=== PATIENT | male | born 1990 | race African-American/Black ===

== ENCOUNTER 2016-06-25 17:16 | Emergency (ER) | payer SELFPAY ==
--- NOTE | 2016-06-25 17:40 | EDDOCDS ---
Nurse's Notes [facility] Name: Jorge Langford Age: 25 yrs Sex: Male : 1990 Arrival Date: 06/25/2016 Time: 17:16 Bed TR7 Private MD: No Pcp Diagnosis: Conjunctivitis-left, bacterial;Blepharitis Presentation: 06/25 17:21 Presenting complaint: Patient states: woke up a week ago with reddened swollen left [facility] eye, today it was real crusty with puss actually for about three days now. Mechanism of Injury: No Mechanism of Injury. The patient denies any loss of vision. Adult Sepsis Screening: The patient does not have new or worsening altered mentation. Patient's respiratory rate is less than 22. Systolic blood pressure is greater than 100. Patient has a qSOFA score of 0- Negative Sepsis Screen. Suicide/Homicide risk assessment- the patient denies having any suicidal and/or homicidal ideations and does not present with any other emotional, behavioral or mental health complaints. Status: Patient is not a program services planner or dependent. Transition of care: patient was not received from another setting of care. 17:21 Acuity: NEW Level 4 [facility] 17:21 Method Of Arrival: Walkin/Carried/Asstd [facility] Triage Assessment: 17:23 General: Appears in no apparent distress, comfortable, Behavior is appropriate for age, [facility] cooperative. Pain: Location: left eye Pain currently is 4 out of 10 on a pain scale. HIV screening NA for this visit Offered previously. EENT: Eyes redness at left eye noted. Respiratory: Airway is patent Respiratory effort is even, unlabored, Respiratory pattern is regular, symmetrical. Derm: Skin is pink, warm & dry. Historical: - Allergies: no known allergies; - Home Meds: 1. Tylenol-Codeine #4 300-60 mg Oral tab (friend's prescirption) (Last dose: 06/25/2016 13:00) - PMHx: none; - PSHx: none; - Social history: Smoking status: Patient states former smoker of tobacco. Patient uses marijuana, last used earlier today, No barriers to communication noted. - Family history: Not pertinent. - : The pt / caregiver states he / she is not on anticoagulants. Home medication list is obtained from the patient. - Exposure Risk Screening:: None identified. Screenin:36 Screening information is obtained from the patient. Fall risk: No risks identified. [facility] Assistance ADL's: requires no assistance with activities of daily living. Abuse/DV Screen: The patient / caregiver reports he/she is: not in a situation that causes fear, pain or injury. Nutritional screening: No deficits noted. Advance Directives: There is no active DNR order. home support is adequate. Assessment: 17:36 General: Appears in no apparent distress, comfortable, Behavior is appropriate for age, c[facility] cooperative. Pain: Location: left eye. Respiratory: No deficits noted. Airway is patent Respiratory effort is even, unlabored, Respiratory pattern is regular, symmetrical. Derm: Skin is pink, warm & dry. Vital Signs: 17:18 BP 152 / 69; Pulse 85; Resp 18; Temp 97.5(O); Pulse Ox 99% ; Weight 72.57 kg; Height 5 elp ft. 11 in. (180.34 cm); Pain 0/10; 17:18 Body Mass Index 22.32 (72.57 kg, 180.34 cm) elp Vitals: 17:18 Log In Time: June 25, 2016 at 17:17. elp Visual Acuity: 17:36 ; no vision defcit reported [facility] ED Course: 17:17 Patient visited by Neris Glez PCA. elp 17:17 No Pcp is Private Physician. elp 17:17 Patient moved to Waiting elp 17:19 Patient visited by Neris Glez PCA. elp 17:19 Patient moved to Pre RCE elp 17:22 Triage Initiated [facility] 17:25 Patient moved to Triage 3 [facility] 17:28 [facility] 17:28 Eitan Zeng MD is Attending Physician. ar2 17:28 Patient visited by Sumanth Jorgensen PA-C. ar2 17:36 Patient moved to TR7 [facility] 17:36 The patient / caregiver is instructed regarding the plan of care and ED course. [facility] 17:36 No IV's were initiated during this patient's visit. No procedures done that require [facility] assistance. Order Results: There are currently no results for this order. Outcome: 17:32 Discharge ordered by Provider. ar2 17:36 Discharge Assessment: Patient awake, alert and oriented x 3. No cognitive and/or [facility] functional deficits noted. Patient verbalized understanding of disposition instructions. patient administered narcotics - no. The following High Risk Discharge criteria are identified: None. Discharged to home ambulatory. Condition: good Condition: stable Condition: unchanged. Discharge instructions given to patient, Instructed on discharge instructions, follow up and referral plans. medication usage, Demonstrated understanding of instructions, medications, Pt was receptive of discharge instructions/ teaching. Prescriptions given X 2. No special radiology studies were completed. Property :Personal belongings accompany Pt. 17:39 Patient left the ED. [facility] Signatures: Sumanth Jorgensen PA-C PAMarissa ar2 Aixa Burgess RN RN [facility] Neris Glez PCA DIRECTOR OF BANDS elp MTDD
--- NOTE | 2016-06-25 17:40 | EDDOCDS ---
Physician Documentation [facility] Name: Jorge Langford Age: 25 yrs Sex: Male : 1990 Arrival Date: 06/25/2016 Time: 17:16 Bed TR7 Private MD: No Pcp Disposition: 06/25/16 17:32 Discharged to Home/Self Care. Impression: Conjunctivitis - left, bacterial, Blepharitis. - Condition is Stable. - Discharge Instructions: Conjunctivitis (Viral and Bacterial), Blepharitis. - Prescriptions for ofloxacin 0.3 % Ophthalmic drops - instill 1 drop by OPHTHALMIC route 4 times per day for 7 days left eye; 1 bottle. Augmentin 875- 125 mg Oral Tablet - take 1 tablet by ORAL route every 12 hours for 7 days; 14 tablet. - Medication Reconciliation, Local Pharmacy Hours form. - Follow up: Emergency Department; When: As needed; Reason: Fever > 102F, Worsening of conditions. - Problem is new. - Symptoms are unchanged. Historical: - Allergies: no known allergies; - Home Meds: 1. Tylenol-Codeine #4 300-60 mg Oral tab (friend's prescirption) (Last dose: 06/25/2016 13:00) - PMHx: none; - PSHx: none; - Social history: Smoking status: Patient states former smoker of tobacco. Patient uses marijuana, last used earlier today, No barriers to communication noted. - Family history: Not pertinent. - : The pt / caregiver states he / she is not on anticoagulants. Home medication list is obtained from the patient. - Exposure Risk Screening:: None identified. Vital Signs: 06/25 17:18 BP 152 / 69; Pulse 85; Resp 18; Temp 97.5(O); Pulse Ox 99% ; Weight 72.57 kg / 159.99 elp lbs; Height 5 ft. 11 in. (180.34 cm); Pain 0/10; 17:18 Body Mass Index 22.32 (72.57 kg, 180.34 cm) elp Visual Acuity: 17:36 ; no vision defcit reported [facility] Signatures: Sumanth Jorgensen, AYE GRIFFITHS ar2 Aixa Burgess RN RN [facility] MTDD
--- NOTE | 2016-06-29 09:32 | EDDOCDS ---
Nurse's Notes [facility] Name: Jorge Langford Age: 25 yrs Sex: Male : 1990 Arrival Date: 06/25/2016 Time: 17:16 Bed TR7 Private MD: No Pcp Diagnosis: Conjunctivitis-left, bacterial;Blepharitis Presentation: 06/25 17:21 Presenting complaint: Patient states: woke up a week ago with reddened swollen left [facility] eye, today it was real crusty with puss actually for about three days now. Mechanism of Injury: No Mechanism of Injury. The patient denies any loss of vision. Adult Sepsis Screening: The patient does not have new or worsening altered mentation. Patient's respiratory rate is less than 22. Systolic blood pressure is greater than 100. Patient has a qSOFA score of 0- Negative Sepsis Screen. Suicide/Homicide risk assessment- the patient denies having any suicidal and/or homicidal ideations and does not present with any other emotional, behavioral or mental health complaints. Status: Patient is not a facility service associate or dependent. Transition of care: patient was not received from another setting of care. 17:21 Acuity: NEW Level 4 [facility] 17:21 Method Of Arrival: Walkin/Carried/Asstd [facility] Triage Assessment: 17:23 General: Appears in no apparent distress, comfortable, Behavior is appropriate for age, [facility] cooperative. Pain: Location: left eye Pain currently is 4 out of 10 on a pain scale. HIV screening NA for this visit Offered previously. EENT: Eyes redness at left eye noted. Respiratory: Airway is patent Respiratory effort is even, unlabored, Respiratory pattern is regular, symmetrical. Derm: Skin is pink, warm & dry. Historical: - Allergies: no known allergies; - Home Meds: 1. Tylenol-Codeine #4 300-60 mg Oral tab (friend's prescirption) (Last dose: 06/25/2016 13:00) - PMHx: none; - PSHx: none; - Social history: Smoking status: Patient states former smoker of tobacco. Patient uses marijuana, last used earlier today, No barriers to communication noted. - Family history: Not pertinent. - : The pt / caregiver states he / she is not on anticoagulants. Home medication list is obtained from the patient. - Exposure Risk Screening:: None identified. Screenin:36 Screening information is obtained from the patient. Fall risk: No risks identified. [facility] Assistance ADL's: requires no assistance with activities of daily living. Abuse/DV Screen: The patient / caregiver reports he/she is: not in a situation that causes fear, pain or injury. Nutritional screening: No deficits noted. Advance Directives: There is no active DNR order. home support is adequate. Assessment: 17:36 General: Appears in no apparent distress, comfortable, Behavior is appropriate for age, cjh cooperative. Pain: Location: left eye. Respiratory: No deficits noted. Airway is patent Respiratory effort is even, unlabored, Respiratory pattern is regular, symmetrical. Derm: Skin is pink, warm & dry. Vital Signs: 17:18 BP 152 / 69; Pulse 85; Resp 18; Temp 97.5(O); Pulse Ox 99% ; Weight 72.57 kg; Height 5 elp ft. 11 in. (180.34 cm); Pain 0/10; 17:18 Body Mass Index 22.32 (72.57 kg, 180.34 cm) elp Vitals: 17:18 Log In Time: June 25, 2016 at 17:17. elp Visual Acuity: 17:36 ; no vision defcit reported [facility] ED Course: 17:17 Patient visited by Neris Glez PCA. elp 17:17 No Pcp is Private Physician. elp 17:17 Patient moved to Waiting elp 17:19 Patient visited by Neris Glez PCA. elp 17:19 Patient moved to Pre RCE elp 17:22 Triage Initiated [facility] 17:25 Patient moved to Triage 3 [facility] 17:28 Sumanth Jorgensen PA-C is [facility] ar2 17:28 Eitan Zeng MD is Attending Physician. ar2 17:28 Patient visited by Sumanth Jorgensen PA-C. ar2 17:36 Patient moved to TR7 [facility] 17:36 The patient / caregiver is instructed regarding the plan of care and ED course. [facility] 17:36 No IV's were initiated during this patient's visit. No procedures done that require [facility] assistance. 06/26 09:29 T-Sheet-- Draft Copy was scanned into [employer] and attached to record. [facility] Order Results: There are currently no results for this order. Outcome: 06/25 17:32 Discharge ordered by Provider. ar2 17:36 Discharge Assessment: Patient awake, alert and oriented x 3. No cognitive and/or [facility] functional deficits noted. Patient verbalized understanding of disposition instructions. patient administered narcotics - no. The following High Risk Discharge criteria are identified: None. Discharged to home ambulatory. Condition: good Condition: stable Condition: unchanged. Discharge instructions given to patient, Instructed on discharge instructions, follow up and referral plans. medication usage, Demonstrated understanding of instructions, medications, Pt was receptive of discharge instructions/ teaching. Prescriptions given X 2. No special radiology studies were completed. Property :Personal belongings accompany Pt. 17:39 Patient left the ED. [facility] Signatures: Sumanth Jorgensen, AYE GRIFFITHS ar2 Aixa Burgess RN RN [facility] Neris Glez, RAUL Navarrete, Anna rivera Chart Complete RACHEL
--- NOTE | 2016-06-29 09:32 | EDDOCDS ---
Physician Documentation [facility] Name: Jorge Langford Age: 25 yrs Sex: Male : 1990 Arrival Date: 06/25/2016 Time: 17:16 Bed TR7 Private MD: No Pcp Disposition: 06/25/16 17:32 Discharged to Home/Self Care. Impression: Conjunctivitis - left, bacterial, Blepharitis. - Condition is Stable. - Discharge Instructions: Conjunctivitis (Viral and Bacterial), Blepharitis. - Prescriptions for ofloxacin 0.3 % Ophthalmic drops - instill 1 drop by OPHTHALMIC route 4 times per day for 7 days left eye; 1 bottle. Augmentin 875- 125 mg Oral Tablet - take 1 tablet by ORAL route every 12 hours for 7 days; 14 tablet. - Medication Reconciliation, Local Pharmacy Hours form. - Follow up: Emergency Department; When: As needed; Reason: Fever > 102F, Worsening of conditions. - Problem is new. - Symptoms are unchanged. Historical: - Allergies: no known allergies; - Home Meds: 1. Tylenol-Codeine #4 300-60 mg Oral tab (friend's prescirption) (Last dose: 06/25/2016 13:00) - PMHx: none; - PSHx: none; - Social history: Smoking status: Patient states former smoker of tobacco. Patient uses marijuana, last used earlier today, No barriers to communication noted. - Family history: Not pertinent. - : The pt / caregiver states he / she is not on anticoagulants. Home medication list is obtained from the patient. - Exposure Risk Screening:: None identified. Vital Signs: 06/25 17:18 BP 152 / 69; Pulse 85; Resp 18; Temp 97.5(O); Pulse Ox 99% ; Weight 72.57 kg / 159.99 elp lbs; Height 5 ft. 11 in. (180.34 cm); Pain 0/10; 17:18 Body Mass Index 22.32 (72.57 kg, 180.34 cm) elp Visual Acuity: 17:36 ; no vision defcit reported [facility] MDM: 06/26 09:29 T-Sheet-- Draft Copy was scanned into [employer] and attached to record. [facility] Signatures: Sumanth Jorgensen PA-C PA-C ar2 Aixa Burgess RN RN cjAnna Rodrigues The chart was reviewed and I authenticate all verbal orders and agree with the evaluation and treatment provided.Attachments: 09:29 T-Sheet-- Draft Copy Chart Complete MTDD
--- NOTE | 2016-06-29 09:32 | EDDOCDS ---
Physician Documentation [facility] Name: Jorge Langford Age: 25 yrs Sex: Male : 1990 Arrival Date: 06/25/2016 Time: 17:16 Bed TR7 Private MD: No Pcp Disposition: 06/25/16 17:32 Discharged to Home/Self Care. Impression: Conjunctivitis - left, bacterial, Blepharitis. - Condition is Stable. - Discharge Instructions: Conjunctivitis (Viral and Bacterial), Blepharitis. - Prescriptions for ofloxacin 0.3 % Ophthalmic drops - instill 1 drop by OPHTHALMIC route 4 times per day for 7 days left eye; 1 bottle. Augmentin 875- 125 mg Oral Tablet - take 1 tablet by ORAL route every 12 hours for 7 days; 14 tablet. - Medication Reconciliation, Local Pharmacy Hours form. - Follow up: Emergency Department; When: As needed; Reason: Fever > 102F, Worsening of conditions. - Problem is new. - Symptoms are unchanged. Historical: - Allergies: no known allergies; - Home Meds: 1. Tylenol-Codeine #4 300-60 mg Oral tab (friend's prescirption) (Last dose: 06/25/2016 13:00) - PMHx: none; - PSHx: none; - Social history: Smoking status: Patient states former smoker of tobacco. Patient uses marijuana, last used earlier today, No barriers to communication noted. - Family history: Not pertinent. - : The pt / caregiver states he / she is not on anticoagulants. Home medication list is obtained from the patient. - Exposure Risk Screening:: None identified. Vital Signs: 06/25 17:18 BP 152 / 69; Pulse 85; Resp 18; Temp 97.5(O); Pulse Ox 99% ; Weight 72.57 kg / 159.99 elp lbs; Height 5 ft. 11 in. (180.34 cm); Pain 0/10; 17:18 Body Mass Index 22.32 (72.57 kg, 180.34 cm) elp Visual Acuity: 17:36 ; no vision defcit reported [facility] MDM: 06/26 09:29 T-Sheet-- Draft Copy was scanned into [employer] and attached to record. [facility] Signatures: Sumanth Jorgensen PA-C PA-C ar2 Aixa Burgess RN RN cjAnna Rodrigues The chart was reviewed and I authenticate all verbal orders and agree with the evaluation and treatment provided.Attachments: 09:29 T-Sheet-- Draft Copy Chart Complete MTDD
== END 2016-06-25 17:39 | disposition home or self-care (01) ==
LOC: M ED 17:16
DX: H10.32 Unspecified acute conjunctivitis, left eye (principal); H01.005 Unspecified blepharitis left lower eyelid; H01.004 Unspecified blepharitis left upper eyelid; Z87.891 Personal history of nicotine dependence

== ENCOUNTER 2017-04-16 17:04 | Emergency (ER) | payer OTHER, SELFPAY ==
[~2017-04-16] VITALS: Ht 180.3 cm; Wt 72.7 kg
[2017-04-16 17:04] VITALS: BP 162/78
[2017-04-16] MEDS ORDERED: TYLE500T78 PO (17:10)
[2017-04-16] MEDS ORDERED: CLEO300C2 PO (17:25)
[2017-04-16] MEDS ORDERED: IBUP-1022 PO (17:27)
[2017-04-16] MEDS ORDERED: KETOROLAC TROMETHAMINE 10 MG TAB PO ONE (17:30)
== END 2017-04-16 17:37 | disposition home or self-care (01) ==
LOC: M ED 17:04
DX: K04.7 Periapical abscess without sinus (principal)

== ENCOUNTER 2017-10-05 16:07 | Emergency (ER) | payer OTHER | END 2017-10-05 18:01 | disposition home or self-care (01) | LOC: M ED 16:07 | DX: K04.7 Periapical abscess without sinus (principal); K02.9 Dental caries, unspecified; R68.84 Jaw pain | CPT/HCPCS: 99282 ==

== ENCOUNTER 2019-09-27 13:29 | Emergency (ER) | payer OTHER, SELFPAY ==
[~2019-09-27] VITALS: Ht 180.3 cm; Wt 81.0 kg
[~2019-09-27 13:29] MED LIST: CLEO300C2 PO; IBUP-1022 PO; IBUP80TA PO; PERC5TAB12 PO; TYLE500T78 PO
[2019-09-27] MEDS ORDERED: SIME180C PO (13:44)
[2019-09-27] MEDS ORDERED: SUCRALFATE SUSP 1GM/10ML UD PO ONE (14:00)
[2019-09-27] MEDS ORDERED: ONDANSETRON 4 MG ORAL DISINTEGRATING TAB (Q0162 PER 1MG) PO ONE (14:00)
[2019-09-27] MEDS ORDERED: FAMOTIDINE 20 MG TAB PO ONE (14:00)
[2019-09-27] MEDS ORDERED: PANT40TA3 PO (14:34)
[2019-09-27] MEDS ORDERED: CARA1TAB6 PO (14:34)
[2019-09-27 15:00] VITALS: BP 118/76
== END 2019-09-27 15:02 | disposition home or self-care (01) ==
LOC: M ED 13:29
DX: K29.70 Gastritis, unspecified, without bleeding (principal)
CPT/HCPCS: 99283; Q0162

== ENCOUNTER 2019-11-18 13:47 | Emergency (ER) | payer OTHER ==
[~2019-11-18] VITALS: Ht 180.3 cm; Wt 81.1 kg
[~2019-11-18 13:47] MED LIST changes: +CARA1TAB6 PO; +PANT40TA29 PO; +SIME180C PO
[2019-11-18] MEDS ORDERED: GI COCKTAIL 50ML BTL(HYOSCYAMINE/MAALOX/LIDOCAINE VISCOUS)(1:3:1) PO ONE (14:15)
[2019-11-18 14:43] LABS: BASO # 0.1 10^3/uL (0.0-0.2); BASO % 0.4 % (0.0-1.0); EOS % 0.3 % (0.0-3.0); HEMATOCRIT 42.8 % (42.0-52.0); HEMOGLOBIN 14.9 g/dl (13.5-17.5); LYMPH # 1.4 10^3/uL (1.5-5.0); MEAN CORPUSCULAR HEMOGLOBIN 29.7 pg (27.0-33.0); MEAN CORPUSCULAR HGB CONC 34.8 g/dl (32.0-36.5); MEAN CORPUSCULAR VOLUME 85.4 fl (80.0-96.0); MONO % 7.5 % (0.0-5.0); NEUTROPHILS # 10.1 10^3/uL (1.5-8.5); NEUTROPHILS % 80.2 % (36.0-66.0); PLATELET COUNT, AUTOMATED 352 10^3/uL (150-450); RED BLOOD COUNT 5.01 10^6/uL (4.30-6.10); WHITE BLOOD COUNT 12.6 10^3/uL (4.0-10.0)
[2019-11-18] MEDS ORDERED: NS 1,000 ML IV ONE ×2 (14:45→16:00)
--- NOTE | 2019-11-18 14:52 | REP ---
CHEST: Single view. There is no evidence of acute infiltrate. No pleural effusion is seen. The heart is normal in size. The mediastinal silhouette is unremarkable. The visualized osseous structures are intact. IMPRESSION: No acute pulmonary disease. Electronically Signed by Celso Smart MD 11/18/2019 03:24 P
[2019-11-18 14:53] LABS: INR 1.04; PROTHROMBIN TIME 13.3 SECONDS (11.8-14.0)
[2019-11-18 14:57] LABS: D-DIMER QUANT 292.59 ng/ml (<500)
[2019-11-18 15:09] LABS: AMPHETAMINES LEVEL URINE NEGATIVE (NEGATIVE); BARBITURATES URINE NEGATIVE (NEGATIVE); BENZODIAZEPINES URINE NEGATIVE (NEGATIVE); CANNABINOIDS URINE POSITIVE (NEGATIVE); COCAINE METABOLITE URINE NEGATIVE (NEGATIVE); METHADONE URINE NEGATIVE (NEGATIVE); OPIATES URINE NEGATIVE (NEGATIVE); PHENCYCLIDINE URINE NEGATIVE (NEGATIVE)
[2019-11-18 15:13] LABS: ALBUMIN 4.4 GM/DL (3.2-5.2); ALT/SGPT 24 U/L (12-78); BILIRUBIN,DIRECT 0.2 MG/DL (0.0-0.2); BILIRUBIN,TOTAL 1.2 MG/DL (0.2-1.0); BLOOD UREA NITROGEN 15 MG/DL (7-18); C REACTIVE PROTEIN QUANTITATIV < 0.30 MG/DL (0.00-0.30); CALCIUM LEVEL 9.2 MG/DL (8.5-10.1); CARBON DIOXIDE LEVEL 24 MEQ/L (21-32); CHLORIDE LEVEL 107 MEQ/L (98-107); CK-MB VALUE MASS < 1.0 NG/ML (<3.6); CPK CREATINE PHOSPHOKINASE 194 U/L (39-308); CREATININE FOR GFR 1.16 MG/DL (0.70-1.30); GLOMERULAR FILTRATION RATE > 60.0 (>60); GLUCOSE, FASTING 106 MG/DL (70-100); LIPASE 61 U/L (73-393); MB/CK RELATIVE INDEX 0.52 (< OR =4); NT-PRO BNP 29 PG/ML (<125); POTASSIUM SERUM 3.9 MEQ/L (3.5-5.1); SODIUM LEVEL 140 MEQ/L (136-145); TOTAL PROTEIN 8.1 GM/DL (6.4-8.2); TROPONIN I < 0.02 NG/ML (< 0.10)
[2019-11-18] MEDS ORDERED: ALBUTEROL 90 MCG/ACT 8GM HFA INHALER INH ONE (15:45)
[2019-11-18] MEDS ORDERED: dexameTHASONE 20MG/5ML VIAL (J1100 PER 1MG) IV ONE (15:45)
[2019-11-18] MEDS ORDERED: PROAAER10 INH (16:48)
[2019-11-18] MEDS ORDERED: KETO10TAB PO (16:48)
[2019-11-18] MEDS ORDERED: SUCR1TA PO (16:48)
[2019-11-18] MEDS ORDERED: PRED20TA PO (16:48)
[2019-11-18] MEDS ORDERED: VENTAER INH (16:48)
[2019-11-18] MEDS ORDERED: PANT40TA29 PO (16:48)
[2019-11-18 18:15] VITALS: BP 135/78
--- NOTE | 2019-11-18 19:54 | ECGEPIP ---
[facility] - ED Test Date: 2019-11-18 Pat Name: CORRIE BUSTAMANTE Department: Room: - Gender: Male Shift Nurse Manager: [facility] : 1990 Requested By: FLORIDA Cespedes Order Number: [id number] Reading MD: Anna Coello Measurements Intervals [place] Rate: 114 P: 75 NC: 166 QRS: 88 QRSD: 82 T: 41 QT: 313 QTc: 431 Interpretive Statements SINUS TACHYCARDIA NONSPECIFIC T-WAVE ABNORMALITY ABNORMAL RHYTHM ECG NO PRIOR Electronically Signed on 11-18-2019 19:54:02 EDT by Anna Coello
== END 2019-11-18 18:19 | disposition home or self-care (01) ==
LOC: M ED 13:47
DX: J45.909 Unspecified asthma, uncomplicated (principal)
CPT/HCPCS: 36415; 71045; 80047; 80048; 80076; 80307; 81001; 82550; 82553; 83690; 83880; 84443; 85025; 85379; 85610; 85730; 86140; 87040; 93005; 93041; 94640; 94760; 96361; 96374; 99285; J1100

== ENCOUNTER 2020-04-27 11:51 | Emergency (ER) | payer OTHER ==
[~2020-04-27] VITALS: Ht 180.3 cm; Wt 88.6 kg
[~2020-04-27 11:51] MED LIST changes: +KETO10TAB PO; +PRED20TA PO; +PROAAER10 INH; +SUCR1TA PO; +VENTAER INH
[2020-04-27] MEDS ORDERED: KETOROLAC 30 MG/ML 1ML VIAL IV ONE (12:15)
[2020-04-27] MEDS ORDERED: ONDANSETRON 4MG/2ML VIAL IV ONE (12:15)
[2020-04-27] MEDS ORDERED: NS 1,000 ML IV ONE (12:15)
[2020-04-27] MEDS ORDERED: ISOVUE-370 76% 100ML VIAL As Ordered ONE (12:49)
[2020-04-27 12:51] LABS: BASO % 0.4 % (0.0-1.0); EOS % 0.1 % (0.0-3.0); HEMOGLOBIN 14.2 g/dl (13.5-17.5); LYMPH % 9.1 % (24.0-44.0); MEAN CORPUSCULAR HEMOGLOBIN 28.9 pg (27.0-33.0); MEAN CORPUSCULAR HGB CONC 33.8 g/dl (32.0-36.5); MEAN CORPUSCULAR VOLUME 85.4 fl (80.0-96.0); MONO # 0.6 10^3/uL (0.0-0.8); MONO % 4.9 % (0.0-5.0); NEUTROPHILS # 9.7 10^3/uL (1.5-8.5); PLATELET COUNT, AUTOMATED 329 10^3/uL (150-450); RED BLOOD COUNT 4.92 10^6/uL (4.30-6.10); WHITE BLOOD COUNT 11.4 10^3/uL (4.0-10.0)
[2020-04-27 13:12] LABS: ALBUMIN 4.5 GM/DL (3.2-5.2); BILIRUBIN,DIRECT 0.1 MG/DL (0.0-0.2); BILIRUBIN,TOTAL 0.9 MG/DL (0.2-1.0); TOTAL PROTEIN 7.6 GM/DL (6.4-8.2)
--- NOTE | 2020-04-27 13:27 | REP ---
INDICATION: abd pain/vomiting/diarrhea. COMPARISON: None. TECHNIQUE: Bolus of 100 mL Isovue 370 scanning through the abdomen and pelvis with coronal and sagittal reconstructions. FINDINGS: CT abdomen: The lung bases are clear. The heart is not enlarged and there is no pericardial thickening or effusion. No hiatal hernia noted. Liver, spleen, gallbladder, stomach and pancreas were unremarkable. Adrenal glands show no mass or nodule. Kidneys show symmetric enhancement without mass, cyst, stone or hydronephrosis. Antrum and duodenum some questionable wall thickening. No adjacent edema or inflammatory changes. Small bowel loops are mostly fluid-filled in the upper abdomen. There are no dilated loops or air-fluid levels proximally. The aorta is without aneurysm there are scattered nonpathologic sized mesenteric and retroperitoneal nodes regard is normal. No mesenteric edema. The lung window review of all CT slices shows no perforation or free air bone windows show lumbar, lower thoracic vertebral levels, posterior elements, visualized ribs in the lower sternum all intact. CT pelvis: Bony sacrum, SI joints, pelvis and hips were all unremarkable. The abdominal portion of the colon shows scattered stool and gas without sign of colitis or diverticulitis in the right colon. The transverse and left colon are collapsed and have questionable wall thickening but without pericolonic inflammatory change. This may reflect some very mild colitis. Some fluid in 1 small bowel loop is a thin elongated appearance and then saccular distention with fluid in the mid upper pelvic portion of scan. No solid mass inflammatory changes adjacent to this loop. The distal left colon and sigmoid without signs of diverticulitis. Collapse of the left colon and sigmoid may reflect some mild colitis. There is no renal, ureteral or bladder stone. Bladder shows no wall thickening or mass but is only partly filled. Appendix is seen and unremarkable. There is no ventral or inguinal hernia. IMPRESSION: 1. There is some thickening of the wall of the gastric antrum and duodenum and some nonspecific changes in small bowel may reflect some gastroenteritis, a nonspecific finding. No obstruction, mass, abdominal or retroperitoneal lymphadenopathy, ascites or free air. 2. Nonspecific finding suggesting a mild colitis transverse left and rectosigmoid colon without inflammatory changes in the fat but with colon collapsed wall slightly thickened. 3. One small bowel loop of with long linear narrow course in the upper pelvis with a saccular fluid-filled component but no mass or adjacent inflammatory change. This is a nonspecific finding. 4. Cecum, appendix and terminal ileum without acute inflammatory changes. 5. No renal, ureteral or bladder stone. <Electronically signed by [place] > 04/27/20 [id number]
[2020-04-27] MEDS ORDERED: ONDA4TAB6 PO (13:57)
[2020-04-27] MEDS ORDERED: OMEP40CA97 PO (13:57)
[2020-04-27] MEDS ORDERED: DICY20TA11 PO (13:57)
[2020-04-27 14:02] VITALS: BP 141/76
== END 2020-04-27 14:10 | disposition home or self-care (01) ==
LOC: M ED 11:51
DX: K63.89 Other specified diseases of intestine (principal)
CPT/HCPCS: 36415; 74177; 80047; 80076; 81001; 83690; 85025; 96361; 96374; 96375; 99284; J1885; J2405; Q9967

== ENCOUNTER 2021-06-15 11:49 | Emergency (ER) | payer OTHER ==
[~2021-06-15] VITALS: Ht 180.3 cm; Wt 78.2 kg
[2021-06-15 11:49] VITALS: BP 162/79
[~2021-06-15 11:49] MED LIST changes: +DICY20TA20 PO; +OMEP40CA4 PO; +ONDA4TAB6 PO; -SIME180C PO; +SIME180C25 PO
[2021-06-15 14:07] LABS: BASO # 0.1 10^3/uL (0.0-0.2); BASO % 0.6 % (0.0-1.0); EOS % 0.3 % (0.0-3.0); HEMATOCRIT 43.8 % (42.0-52.0); HEMOGLOBIN 15.5 g/dl (13.5-17.5); LYMPH % 18.7 % (24.0-44.0); MEAN CORPUSCULAR HEMOGLOBIN 30.2 pg (27.0-33.0); MEAN CORPUSCULAR HGB CONC 35.4 g/dl (32.0-36.5); MEAN CORPUSCULAR VOLUME 85.4 fl (80.0-96.0); MONO # 0.8 10^3/uL (0.0-0.8); MONO % 7.8 % (2.0-8.0); NEUTROPHILS # 7.8 10^3/uL (1.5-8.5); NEUTROPHILS % 72.4 % (36.0-66.0); PLATELET COUNT, AUTOMATED 324 10^3/uL (150-450); RED BLOOD COUNT 5.13 10^6/uL (4.30-6.10); WHITE BLOOD COUNT 10.7 10^3/uL (4.0-10.0)
[2021-06-15 14:41] LABS: ALBUMIN 4.4 GM/DL (3.2-5.2); ALT/SGPT 23 U/L (12-78); BILIRUBIN,DIRECT 0.2 MG/DL (0.0-0.2); BILIRUBIN,TOTAL 0.8 MG/DL (0.2-1.0); BLOOD UREA NITROGEN 18 MG/DL (7-18); CALCIUM LEVEL 9.5 MG/DL (8.5-10.1); CARBON DIOXIDE LEVEL 27 MEQ/L (21-32); CHLORIDE LEVEL 105 MEQ/L (98-107); CREATININE FOR GFR 1.06 MG/DL (0.70-1.30); GLOMERULAR FILTRATION RATE > 60.0 (>60); GLUCOSE, FASTING 95 MG/DL (70-100); LIPASE 127 U/L (73-393); POTASSIUM SERUM 4.3 MEQ/L (3.5-5.1); SODIUM LEVEL 138 MEQ/L (136-145); TOTAL PROTEIN 7.8 GM/DL (6.4-8.2)
== END 2021-06-15 16:31 | disposition left against medical advice (07) ==
LOC: M ED 11:49
DX: Z53.21 Procedure and treatment not carried out due to patient leaving prior to being seen by health care provider (principal)

== ENCOUNTER 2021-12-29 11:58 | Emergency (ER) | payer OTHER ==
[~2021-12-29] VITALS: Ht 180.3 cm; Wt 75.5 kg
[2021-12-29 11:59] VITALS: BP 130/68
[2021-12-29 12:50] LABS: BASO % 0.3 % (0.0-1.0); EOS % 0.3 % (0.0-3.0); HEMATOCRIT 42.2 % (42.0-52.0); LYMPH # 1.5 10^3/uL (1.5-5.0); MEAN CORPUSCULAR HEMOGLOBIN 30.7 pg (27.0-33.0); MEAN CORPUSCULAR HGB CONC 35.5 g/dl (32.0-36.5); MEAN CORPUSCULAR VOLUME 86.3 fl (80.0-96.0); MONO # 0.7 10^3/uL (0.0-0.8); NEUTROPHILS # 7.8 10^3/uL (1.5-8.5); PLATELET COUNT, AUTOMATED 293 10^3/uL (150-450); RED BLOOD COUNT 4.89 10^6/uL (4.30-6.10); WHITE BLOOD COUNT 10.1 10^3/uL (4.0-10.0)
[2021-12-29 13:27] LABS: ALBUMIN 4.5 GM/DL (3.2-5.2); ALT/SGPT 18 U/L (12-78); BILIRUBIN,DIRECT 0.3 MG/DL (0.0-0.2); BILIRUBIN,TOTAL 1.5 MG/DL (0.2-1.0); BLOOD UREA NITROGEN 20 MG/DL (7-18); CALCIUM LEVEL 9.8 MG/DL (8.5-10.1); CARBON DIOXIDE LEVEL 27 MEQ/L (21-32); CHLORIDE LEVEL 107 MEQ/L (98-107); CREATININE FOR GFR 1.19 MG/DL (0.70-1.30); GLOMERULAR FILTRATION RATE > 60.0 (>60); GLUCOSE, FASTING 115 MG/DL (70-100); LIPASE 150 U/L (73-393); POTASSIUM SERUM 4.3 MEQ/L (3.5-5.1); SODIUM LEVEL 136 MEQ/L (136-145); TOTAL PROTEIN 7.8 GM/DL (6.4-8.2)
== END 2021-12-29 15:16 | disposition left against medical advice (07) ==
LOC: M ED 11:58
DX: Z53.21 Procedure and treatment not carried out due to patient leaving prior to being seen by health care provider (principal)

== ENCOUNTER 2022-01-24 21:18 | Emergency (ER) | payer OTHER ==
[~2022-01-24] VITALS: Ht 180.3 cm; Wt 78.2 kg
[2022-01-24 21:19] VITALS: BP 150/72
== END 2022-01-24 22:55 | disposition left against medical advice (07) ==
LOC: M ED 21:18
DX: Z53.21 Procedure and treatment not carried out due to patient leaving prior to being seen by health care provider (principal)

== ENCOUNTER 2022-03-21 19:18 | Emergency (ER) | payer OTHER ==
[2022-03-21 19:19] VITALS: BP 160/90
== END 2022-03-21 22:18 | disposition home or self-care (01) ==
LOC: M ED 19:18
DX: R42 Dizziness and giddiness (principal); T59.91XA Toxic effect of unspecified gases, fumes and vapors, accidental (unintentional), initial encounter; F12.10 Cannabis abuse, uncomplicated

== ENCOUNTER 2022-04-09 11:34 | Emergency (ER) | payer OTHER ==
[~2022-04-09] VITALS: Ht 180.3 cm; Wt 77.1 kg
[2022-04-09 12:41] LABS: BASO # 0.1 10^3/uL (0.0-0.2); BASO % 0.6 % (0.0-1.0); EOS # 0.1 10^3/uL (0.0-0.5); EOS % 1.3 % (0.0-3.0); HEMATOCRIT 43.6 % (42.0-52.0); HEMOGLOBIN 15.4 g/dl (13.5-17.5); LYMPH # 1.5 10^3/uL (1.5-5.0); MEAN CORPUSCULAR HEMOGLOBIN 30.3 pg (27.0-33.0); MEAN CORPUSCULAR HGB CONC 35.3 g/dl (32.0-36.5); MEAN CORPUSCULAR VOLUME 85.8 fl (80.0-96.0); MONO # 0.8 10^3/uL (0.0-0.8); MONO % 8.8 % (2.0-8.0); NEUTROPHILS # 6.3 10^3/uL (1.5-8.5); NEUTROPHILS % 71.8 % (36.0-66.0); PLATELET COUNT, AUTOMATED 347 10^3/uL (150-450); RED BLOOD COUNT 5.08 10^6/uL (4.30-6.10); WHITE BLOOD COUNT 8.7 10^3/uL (4.0-10.0)
[2022-04-09 13:26] LABS: ALBUMIN 4.5 GM/DL (3.2-5.2); ALT/SGPT 18 U/L (12-78); BILIRUBIN,DIRECT 0.2 MG/DL (0.0-0.2); BLOOD UREA NITROGEN 18 MG/DL (7-18); CALCIUM LEVEL 9.5 MG/DL (8.5-10.1); CARBON DIOXIDE LEVEL 26 MEQ/L (21-32); CHLORIDE LEVEL 106 MEQ/L (98-107); CREATININE FOR GFR 1.14 MG/DL (0.70-1.30); GLOMERULAR FILTRATION RATE > 60.0 (>60); GLUCOSE, FASTING 100 MG/DL (70-100); LIPASE 105 U/L (73-393); POTASSIUM SERUM 4.7 MEQ/L (3.5-5.1); SODIUM LEVEL 137 MEQ/L (136-145); TOTAL PROTEIN 8.1 GM/DL (6.4-8.2)
[2022-04-09] MEDS ORDERED: ONDANSETRON 4MG 2ML VIAL IV ONE (14:10)
[2022-04-09] MEDS ORDERED: NS 1,000 ML IV ONE (14:10)
[2022-04-09] MEDS ORDERED: ONDA4TAB6 PO (15:29)
[2022-04-09 15:44] VITALS: BP 149/66
== END 2022-04-09 15:46 | disposition home or self-care (01) ==
LOC: M ED 11:34
DX: R19.5 Other fecal abnormalities (principal); R11.0 Nausea; R10.9 Unspecified abdominal pain; R42 Dizziness and giddiness
CPT/HCPCS: 80048; 80076; 81002; 83690; 85025; 87507; 96361; 96374; 99284; J2405

== ENCOUNTER 2022-08-22 16:54 | Emergency (ER) | payer OTHER ==
[~2022-08-22] VITALS: Ht 180.3 cm; Wt 76.2 kg
[2022-08-22 16:54] VITALS: BP 171/82
[2022-08-22] MEDS ORDERED: ALBUTEROL 90 MCG/ACT 8GM HFA INHALER INH ONE (17:25)
[2022-08-22] MEDS ORDERED: BENZ200C70 PO (18:41)
[2022-08-22] MEDS ORDERED: MUCI600T31 PO (18:41)
[2022-08-22] MEDS ORDERED: VENTAER INH (18:41)
== END 2022-08-22 18:47 | disposition home or self-care (01) ==
LOC: M ED 16:54
DX: J06.9 Acute upper respiratory infection, unspecified (principal); J20.9 Acute bronchitis, unspecified; F12.10 Cannabis abuse, uncomplicated